=== PATIENT | male | born 1980 | race Caucasian/White ===

== ENCOUNTER 2017-11-25 19:23 | Inpatient (IN) | payer OTHER ==
[~2017-11-25 19:23] MED LIST: ISOVUE-370 76%-LOCM 1 ML ONE; Iopamidol 370 76% 50 ML VIAL FS ONE
[2017-11-25] MEDS ORDERED: Metoclopramide HCl 10 MG/2 ML VIAL ONE (20:13)
[2017-11-25] MEDS ORDERED: Pantoprazole 40 MG VIAL ONE (20:13)
[2017-11-25 20:33] LABS: #Eosinphils 0.2 thou/uL (0.0-0.7); #Lymphocytes 1.5 thou/uL (1.20-3.40); #Monocytes 1.1 thou/uL (0.11-0.59); %Basophils 0.3 % (0.0-1.0); %Eosinophils 1.7 % (0.0-10.0); %Lymphocytes 10.8 % (21.0-51.0); %Monocytes 7.9 % (0.0-10.0); %Neutrophils 79.3 % (42.0-75.0); Mean Corpuscular Volume 81.2 fL (78.0-98.0); Mean Platelet Volume 7.3 fL (7.4-10.4); Platelet Count 365 thou/uL (130-400); RBC Distribution Width 13.9 % (11.5-14.5); Red Blood Cell (RBC) Count 5.76 mill/uL (4.70-6.10); White Blood Cell (WBC) Count 13.9 thou/uL (4.8-10.8)
[2017-11-25] MEDS ORDERED: Promethazine HCl 25 MG/ML VIAL ONE (20:53)
[2017-11-25 20:54] LABS: ALT (SGPT) 23 U/L (8-55); AST (SGOT) 24 U/L (5-34); Albumin 4.5 g/dL (3.5-5.0); Alkaline Phosphatase 104 U/L (40-150); Anion Gap 11 mmol/L (10-20); BUN (Urea Nitrogen) 14 mg/dL (8.9-20.6); Bilirubin, Total 0.6 mg/dL (0.2-1.2); CK (CPK) 138 U/L (30-200); Calc. Creatinine Clearance 0 mL/min (70-130); Calcium 9.5 mg/dL (7.8-10.44); Carbon Dioxide 27 mmol/L (22-29); Chloride 106 mmol/L (98-107); Estimated GFR-MDRD 79; Globulin 3.3 g/dL (2.4-3.5); Glucose 99 mg/dL (70-105); Lipase 27 U/L (8-78); Magnesium 2.5 mg/dL (1.6-2.6); Potassium 3.9 mmol/L (3.5-5.1); Protein, Total 7.8 g/dL (6.0-8.3); Sodium 140 mmol/L (136-145)
[2017-11-25] MEDS ORDERED: Sodium Chloride 0.9% 100 ML ONE (20:54)
[2017-11-25] MEDS ORDERED: Fentanyl 100 MCG/2 ML VIAL ONE (21:32)
--- NOTE | 2017-11-26 00:10 | CT ---
ABDOMEN AND PELVIS CT WITH CONTRAST: INDICATIONS: Abdominal pain with nausea and vomiting. FINDINGS: There is mild dilatation of the small bowel, diffusely, to the level of the ileum, within the right l ower quadrant. Areas of bowel wall thickening and surrounding fat stranding, as well as slight engor gement of mesenteric vasculature are present. There is no disseminated free air or portal vein gas. There is a partially air filled, noninflamed appendix within the right lower quadrant, which measure s approximately 6 mm in diameter. There are mildly prominent lower abdominal mesenteric lymph nodes. Mild subpleural ground glass opacities at the lung bases may be related to volume loss. There is c ontrast opacification of the imaged distal esophagus, which may relate to dysmotility or reflux. The re is also prominent distention of the gastric lumen, by contrast, which may relate to stagnation fro m the above described small bowel process. There is a small hiatal hernia visualized. IMPRESSION: Findings indicative of small bowel obstruction, as well as mural edema of the small bowel, with the p oint of transition within the right lower quadrant, favoring an area of stricturing, although given t he swirled appearance of the mesentery within this region, the possibility of an internal hernia is n ot excluded. There is mild venous congestion of the mesentery with associated mild free fluid. Give n the patient's age and abnormal associated bowel findings, correlate for history of irritable bowel disease, such as Crohn's disease. Findings called to ER physician, Santana Howard M.D., at the time of the dictation (2250 hours) on 11/25/2017. CODE CR POS: [facility]
[2017-11-26] MEDS ORDERED: Midazolam HCl 2 mg/2 ml Vial ONE (00:20)
[2017-11-26] MEDS ORDERED: Lidocaine 2% Jelly 5 ML TUBE ONE (00:39)
[2017-11-26] MEDS ORDERED: Oxymetazoline HCl 0.05% ( 15 ML ) ONE (00:48)
[2017-11-26] MEDS ORDERED: Fentanyl 100 MCG/2 ML VIAL ONE (00:55)
[2017-11-26] MEDS ORDERED: Ondansetron HCl/PF 4 MG/2 ML Vial IVP PRN (02:32)
[2017-11-26] MEDS ORDERED: Fentanyl 100 MCG/2 ML VIAL SLOW IVP PRN (02:32)
[2017-11-26] MEDS ORDERED: Ondansetron ODT 4 MG TAB SL PRN (02:32)
[2017-11-26] MEDS ORDERED: Dextrose 5 %-0.45 % NaCl 1,000 ML IV SCH (02:45)
[2017-11-26 02:55] VITALS: BMI 27.5
[2017-11-26 05:35] LABS: #Eosinphils 0.2 thou/uL (0.0-0.7); #Lymphocytes 1.4 thou/uL (1.20-3.40); #Neutrophils 7.9 thou/uL (1.40-6.50); %Basophils 0.1 % (0.0-1.0); %Eosinophils 1.6 % (0.0-10.0); %Lymphocytes 13.7 % (21.0-51.0); %Monocytes 9.1 % (0.0-10.0); %Neutrophils 75.6 % (42.0-75.0); Hemoglobin 13.6 g/dL (14.0-18.0); Mean Corpuscular HGB CONC 32.4 g/dL (32.0-36.0); Mean Corpuscular Hemoglobin 26.1 pg (27.0-31.0); Mean Corpuscular Volume 80.6 fL (78.0-98.0); Mean Platelet Volume 7.4 fL (7.4-10.4); Platelet Count 307 thou/uL (130-400); RBC Distribution Width 13.7 % (11.5-14.5); White Blood Cell (WBC) Count 10.5 thou/uL (4.8-10.8)
[2017-11-26 05:49] LABS: ALT (SGPT) 20 U/L (8-55); AST (SGOT) 18 U/L (5-34); Albumin 4.1 g/dL (3.5-5.0); Alkaline Phosphatase 90 U/L (40-150); Anion Gap 10 mmol/L (10-20); BUN (Urea Nitrogen) 12 mg/dL (8.9-20.6); Bilirubin, Total 0.5 mg/dL (0.2-1.2); Calc. Creatinine Clearance 127 mL/min (70-130); Calcium 9.2 mg/dL (7.8-10.44); Carbon Dioxide 27 mmol/L (22-29); Chloride 106 mmol/L (98-107); Estimated GFR-MDRD 85; Globulin 2.8 g/dL (2.4-3.5); Glucose 116 mg/dL (70-105); Potassium 3.6 mmol/L (3.5-5.1); Protein, Total 6.9 g/dL (6.0-8.3); Sodium 139 mmol/L (136-145)
--- NOTE | 2017-11-26 08:23 | RAD ---
RADIOGRAPH CHEST 1 VIEW RADIOGRAPH ABDOMEN 2 VIEWS: Date: 11-26-17 Time: 7:36 a.m. HISTORY: 37-year-old male with inflammatory bowel disease and small bowel obstruction. Diffuse abdominal pain, nausea, and vomiting. FINDINGS: There is mild subsegmental atelectasis at the right lung base. Otherwise, the visualized lung lange are clear. The cardiomediastinal silhouette is normal. No evidence of pneumoperitoneum or pneumothora x. Lateral costophrenic angles are sharp. Air fluid levels throughout nondilated colon containing shaji nt enteric contrast material from last night's CT. Multiple dilated small bowel loops with airfluid l evels and enteric contrast material. The contrast material has reached the rectum. IMPRESSION: Abnormal bowel gas pattern. Based on the appearance of the CT, and the progression of enteric contras t media into the colon, this is probably a low grade partial small bowel obstruction. RIAN POS: [facility]
[2017-11-26] MEDS ORDERED: hydrALAZINE 20 MG/ML VIAL SLOW IVP PRN (09:19)
[2017-11-26] MEDS ORDERED: Morphine 4 MG/ML Carpuject IVP PRN (09:19)
[2017-11-26] MEDS ORDERED: Ondansetron ODT 4 MG TAB PO PRN (09:19)
[2017-11-26] MEDS ORDERED: Acetaminophen 1,000 MG in Premix Bag 1 BAG IVPB PRN (09:22)
[2017-11-26] MEDS ORDERED: Ketorolac Tromethamine 30 MG/ML VIAL IVP SCH (09:30)
[2017-11-26] MEDS ORDERED: Acetaminophen 1,000 MG in Premix Bag 1 BAG IVPB SCH (09:30)
[2017-11-26] MEDS: Lactated Ringer's 1,000 ML IV SCH ×2 (09:49→17:56)
--- NOTE | 2017-11-26 09:51 | HP ---
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, upper and lower endoscopy they were unremarkable. In the 3 days, he has experienced abdominal pain, right lower quadrant, nausea, cramps. He presented to the emergency room last night, had a white count of 13,000, normal electrolytes, normal liver functio n tests. CAT scan revealed inflammatory changes in the terminal ileal area with a normal appearing a ppendix. He had changes suggestive of partial bowel obstruction. This morning, abdominal x-rays rev eal contrast in the colon indicating an incomplete bowel obstruction. He did have some air fluid lev els in the colon. The patient is having pain. He states he has been having some loose stools since this admission. ALLERGIES: None. TOBACCO: None. ALCOHOL: Every other day 12-16 ounces of liquor. ALLERGIES: None. TOBACCO: None. MEDICATIONS: Marisela, Ambien, pravastatin 20 mg p.m., tizanidine 4 mg b.i.d., celecoxib 200 mg b.i.d ., omeprazole 20 mg a day, gabapentin 600 mg t.i.d., and cetirizine 10 mg daily. PAST SURGICAL HISTORY: Right shoulder arthroscopy, colonoscopy in the past. PAST MEDICAL HISTORY: GERD, elevated cholesterol. FAMILY HISTORY: Noncontributory. REVIEW OF SYSTEMS: Otherwise, noncontributory. PHYSICAL EXAMINATION: VITAL SIGNS: Height 5 feet 10 inches, 192 pounds, 27 BMI, 98.6, 76, and 145/81. HEENT: Unremarkable. LUNGS: Clear to auscultation. CARDIAC: Regular rate and rhythm without murmur or gallop. ABDOMEN: Soft, nondistended, non-tympanitic. Mild tenderness in right lower quadrant without guardi ng or rebound. EXTREMITIES: Unremarkable. No ankle edema, palpable pedal pulses. LYMPH: No lymphadenopathy, axilla, groins, neck. SKIN: Turgor normal. NEUROLOGIC: Intact. No deficits. LABORATORY DATA: White count 10, hemoglobin 13. Basic metabolic profile normal. Liver function kendra ts normal. ASSESSMENT AND PLAN: 1. Abdominal pain, uncertain etiology 2. Abnormal findings in the right lower quadrant near the terminal ileum, normal upper and lower end oscopy more than [address] Rohan Nazario will see him from a Gastroenterology standpoint and I have spoken with Dr. Nazario. Plan probably would be to give him a slow bowel prep and plan upper and l ower endoscopies. Laparoscopy is a possibility if indicated, but we will await endoscopic trial and results. In the meantime, hydration, analgesics.
--- NOTE | 2017-11-26 13:40 | CON ---
DATE OF CONSULTATION: 11/26/2017 HISTORY OF PRESENT ILLNESS: The patient is a 37-year-old male who was in his normal state of health until 4 days prior to admission when he developed severe abdominal cramping and pressure-li ke discomfort. This mainly came from the right side of his abdomen. He did have some nausea and vom iting starting on Saturday. He has not thrown up since Saturday. He denies any weight loss. He denies any bowel changes. He denies any fever or chills. [facility] end[facility], which showed reflux esophagitis. Colonoscopy showed possible stricture in the ileum. The rectosigmoid was spastic and could not be well inflated. Histopatholog y showed no abnormalities. Dr. Trinh also performed a small bowel follow through on 05/26/2008. Thi s showed abnormal appearance of the terminal ileum and fistulous communication within the pelvis betw een the small bowel and sigmoid colon findings suggestive of Crohn's disease. The patient was lost t o followup. PAST MEDICAL HISTORY: Includes hypertension, gastroesophageal reflux, hyperlipidemia. PAST SURGICAL HISTORY: Includes right shoulder arthroscopy. MEDICATIONS: Include Marisela 180 mg p.o. daily, Ambien 10 mg p.o. at bedtime, pravastatin 20 mg p.o. q.p.m., tizanidine 4 mg p.o. b.i.d., Zyrtec 1 p.o. daily, Celebrex 200 mg b.i.d., omeprazole 20 mg p .o. daily, gabapentin 600 mg p.o. t.i.d. ALLERGIES: No known allergies. SOCIAL HISTORY: He does not smoke, but vapes. Alcohol, drinks 1 drink per day. FAMILY HISTORY: Negative for GI or liver disease. REVIEW OF SYSTEMS: Ten systems were reviewed and were negative except for above. PHYSICAL EXAMINATION: GENERAL: Shows a well-developed, well-nourished, white male in no acute distress. VITAL SIGNS: Temperature 98.3, pulse 62, respiratory rate 18, blood pressure 132/90. HEENT: Unremarkable. NECK: Supple. CHEST: Clear. CARDIOVASCULAR: Regular rate and rhythm. ABDOMEN: Soft, slightly protuberant, slightly tympanitic, tender diffusely. Bowel sounds are presen t. RECTAL: Deferred. EXTREMITIES: Normal. NEUROLOGIC: Nonfocal. LABORATORY DATA AND IMAGING: Shows a white blood cell count of 10.5, hemoglobin 13.6, hematocrit of 42.0. Chemistries are normal. Abdominal and pelvic CT shows findings indicative of small-bowel obst ruction as well as mural edema of the small bowel with a point of transition within the right lower q uadrant area of stricturing. There is mild venous congestion of the mesentery with associated mild free fluid. ASSESSMENT: 1. Crohn's ileitis with stricture. 2. History of abnormal small bowel series in 2008 with possible enterocolonic fistula. RECOMMENDATIONS: 1. Begin IV steroids. 2. CT enterography. 3. Begin clear liquids.
[2017-11-26] MEDS: Ondansetron HCl/PF 4 MG/2 ML Vial IVP PRN (15:28)
[2017-11-26] MEDS: Ketorolac Tromethamine 30 MG/ML VIAL IVP PRN ×2 (15:28→21:32)
[2017-11-27] MEDS: Lactated Ringer's 1,000 ML IV SCH ×3 (04:01→21:51)
[2017-11-27 04:38] LABS: #Monocytes 0.3 thou/uL (0.11-0.59); #Neutrophils 7.9 thou/uL (1.40-6.50); %Eosinophils 0.1 % (0.0-10.0); %Lymphocytes 10.3 % (21.0-51.0); %Monocytes 3.7 % (0.0-10.0); %Neutrophils 85.9 % (42.0-75.0); Hemoglobin 12.6 g/dL (14.0-18.0); Mean Corpuscular HGB CONC 31.6 g/dL (32.0-36.0); Mean Corpuscular Hemoglobin 25.7 pg (27.0-31.0); Mean Corpuscular Volume 81.2 fL (78.0-98.0); Mean Platelet Volume 7.2 fL (7.4-10.4); Platelet Count 312 thou/uL (130-400); RBC Distribution Width 13.6 % (11.5-14.5); Red Blood Cell (RBC) Count 4.93 mill/uL (4.70-6.10); White Blood Cell (WBC) Count 9.2 thou/uL (4.8-10.8)
[2017-11-27] MEDS: Pantoprazole 40 MG VIAL IVP SCH (08:11)
[2017-11-27] MEDS: Enoxaparin Sodium 40 MG/0.4 ML SYRINGE SC SCH (08:11)
--- NOTE | 2017-11-27 11:55 | PRG ---
DATE OF SERVICE: 11/27/2017 Jared Marc is doing well today. Radiological findings are consistent with Crohn's disease. Appar ently when he had his endoscopy 10 years ago. He was told he had Crohn's disease. [facility] not followup. Conversation with the patient's states that he did not kn ow he had Crohn's disease. The patient has been treated with steroids. He was on liquids. He did e xperience 1 emesis after broth. He has passed a liquid stool. OBJECTIVE: VITAL SIGNS: 98.4 degrees, 91, 96% room air, 128/83. LABORATORY: White count 9, hemoglobin 12. Electrolytes not obtained today. Yesterday they were nor mal. Abdominal pelvis CAT scan oral contrast enterorrhaphy obtained today, results are pending. GI has se en him. Dr. Nazario has seen him. LUNGS: Clear to auscultation. CARDIAC: Regular rate and rhythm without murmur or gallop. ABDOMEN: Soft. Mild tenderness in the right lower quadrant. No guarding, rebound. EXTREMITIES: Unremarkable. ASSESSMENT AND PLAN: Crohn's disease with ileal stricture and inflammation. Treat nonoperatively tr ial. Diet advancement and medical treatment per Gastroenterology.
--- NOTE | 2017-11-27 13:07 | CT ---
CT OF THE ABDOMEN AND PELVIS WITH AND WITHOUT IV CONTRAST UTILIZING ENTEROGRAPHY PROTOCOL: Indication: Nausea, vomiting, abdominal pain. Comparison: CT abdomen/pelvis 11-25-17. Small bowel follow through, 05-26-08. FINDINGS: There are dilated loops of jejunum and ileum seen within the midabdomen. The dilated loops transition to a persistent region of stricturing of the distal ileum on Image 174 of axial series. There are te thered loops of terminal ileum, all to a single point, to the terminal ileum on Image 176 of Series 3 . There is entero colonic fistula extending from the terminal ileum to the sigmoid colon which was se en on the comparison small bowel follow through dated 05-26-08. Gas is seen at the fistulous communicat ion on Image 176 of Series 3. The rectum and colon appear within normal limits. There is a small amou nt free fluid seen within the pelvis and abdomen. No free air is grossly evident. There is wall thickening and slight mucosal enhancement involving portions of the terminal ileum like ly indicative of some active disease. There is bibasilar atelectasis. There is fluid distention of the stomach and distal esophagus. There is a layer of density within the gallbladder which could reflect vicarious excretion of contrast versus sludge. The pancreas and adrenal glands are normal appearing. The kidneys are normal appearing. No enlarged lymph nodes are grossly evident. There are fat containing bilateral inguinal hernias. There is scattered degenerative and osteoarthrit ic change. IMPRESSION: 1. Numerous tether loops of distal ileum to the terminal ileum causing severe stricturing of the dist al ileum and moderate grade partial small bowel obstruction. There is a persistent fistula to the sig moid colon from the terminal ileum, best seen on Image 176 of Series 3. 2. Mild free fluid within the abdomen and pelvis. 3. Layer of density within the gallbladder may reflect vicarious excretion of contrast from prior IV contrast administration or layering gallbladder sludge. POS: [facility]
[2017-11-27] MEDS: Ondansetron HCl/PF 4 MG/2 ML Vial IVP PRN (13:31)
[2017-11-27] MEDS ORDERED: Promethazine HCl 25 MG/ML VIAL IM PRN (14:39)
[2017-11-27] MEDS ORDERED: Promethazine HCl 12.5 MG SUPP PR PRN (14:39)
[2017-11-27] MEDS: Ketorolac Tromethamine 30 MG/ML VIAL IVP PRN (19:01)
--- NOTE | 2017-11-27 19:46 | PRG ---
DATE OF SERVICE: 11/27/2017 SUBJECTIVE: Mr. Macr had the CT enterography today. About 4 hours after drinking the contrast, he vomited a large amount of clear fluid and contrast. He has no abdominal pain. He is passing some l iquidy stool still today. OBJECTIVE: VITAL SIGNS: Temperature 98.3, pulse 91, blood pressure 144/88. GENERAL: He is in no acute distress. He is alert and oriented x3. HEENT: Eyes have no scleral icterus. Oropharynx is clear, without lesions. NECK: No cervical or supraclavicular lymphadenopathy. LUNGS: Clear to auscultation bilaterally. HEART: Regular rate and rhythm without murmur. ABDOMEN: Soft. He has mild tenderness in the periumbilical region and bowel sounds are present. EXTREMITIES: No lower extremity edema. LABORATORY DATA: White blood cell count 9.2, hemoglobin 12.6, platelets 312, creatinine 1.0, bilirub in 0.5, AST 18, ALT 20, alkaline phosphatase 90, albumin 4.1. IMAGING: He had CT scan of the abdomen and pelvis with CT enterography protocol. There was wall thi ckening and mucosal enhancement involving portions of the terminal ileum suggestive of some active in flammation. There were dilated loops of jejunum and ileum noted. There is a persistent region of st ricturing in the distal ileum with tethered loops of terminal ileum all to a single point. An entero colonic fistula was identified between the sigmoid colon and small bowel. IMPRESSION: Crohn's disease of the distal ileum with fibrostenotic stricturing versus inflammatory s tricturing plus penetrating disease with a enterocolonic fistula from the terminal ileum to the sigmo id. Given that he has had this stricture and fistula for 10 years, this is likely fibrostenotic rath er than just acute inflammatory disease. The fistula is actually allowing him to decompress some of the terminal ileum obstruction. I think ultimately the best treatment for this would likely end up b eing surgery to resect the diseased segment; however, given that there are multiple loops of bowel re ported as tethered to the area, there is a concern that he might require more extensive bowel resecti on. It is possible that he has a significant inflammatory component in which case medical therapy sh ould at least be given a chance. RECOMMENDATIONS: 1. Continue to treat with IV steroids. If he ultimately fails to significantly improve over the nex t few days with steroids, then I would lean towards proceeding directly to surgery. If he does impro ve and is able to tolerate adequate nutrition with the steroids and I would transition to an anti-TNF such as Remicade as an outpatient and then follow longer term on how he responds to this. 2. In anticipation for potential need for anti-TNF, we will check viral hepatitis panel and TB Quant iFERON and HIV. We will keep him n.p.o. for now since he vomited today the contrast and had a disten ded stomach and small bowel. He is not tolerated attempted placement of NG tube.
[2017-11-27] MEDS ORDERED: Morphine 2 MG/ML SYRINGE IVP PRN (22:00)
[2017-11-28 05:38] LABS: #Neutrophils 7.5 thou/uL (1.40-6.50); %Basophils 0.1 % (0.0-1.0); %Eosinophils 0.1 % (0.0-10.0); %Lymphocytes 10.2 % (21.0-51.0); %Monocytes 10.1 % (0.0-10.0); %Neutrophils 79.5 % (42.0-75.0); Hemoglobin 11.9 g/dL (14.0-18.0); Mean Corpuscular HGB CONC 32.7 g/dL (32.0-36.0); Mean Corpuscular Hemoglobin 26.7 pg (27.0-31.0); Mean Corpuscular Volume 81.7 fL (78.0-98.0); Mean Platelet Volume 7.8 fL (7.4-10.4); Platelet Count 290 thou/uL (130-400); RBC Distribution Width 13.8 % (11.5-14.5); Red Blood Cell (RBC) Count 4.47 mill/uL (4.70-6.10); White Blood Cell (WBC) Count 9.4 thou/uL (4.8-10.8)
[2017-11-28 05:47] LABS: Anion Gap 10 mmol/L (10-20); BUN (Urea Nitrogen) 19 mg/dL (8.9-20.6); Calc. Creatinine Clearance 149 mL/min (70-130); Calcium 9.4 mg/dL (7.8-10.44); Carbon Dioxide 27 mmol/L (22-29); Chloride 107 mmol/L (98-107); Estimated GFR-MDRD Greater than 90; Glucose 109 mg/dL (70-105); Potassium 4.1 mmol/L (3.5-5.1); Sodium 140 mmol/L (136-145)
[2017-11-28] MEDS: Lactated Ringer's 1,000 ML IV SCH ×4 (06:00→21:32)
[2017-11-28 06:03] LABS: HBSAB Concentration 2.55 mIU/mL; HBSAg Index 0.26 S/CO (0-0.99); Hep B Core Total Ab Non-Reactive (NonReactive); Hep B Core Total Index 0.14 S/CO (0-0.79); Hep B Surf AB Non-Reactive (NonReactive); Hep B Surf Ag Non-Reactive S/CO (NonReactive); Hep C IgG Ab Non-Reactive (NonReactive)
[2017-11-28] MEDS: Pantoprazole 40 MG VIAL IVP SCH (09:13)
[2017-11-28] MEDS: Enoxaparin Sodium 40 MG/0.4 ML SYRINGE SC SCH (09:13)
--- NOTE | 2017-11-28 11:14 | PRG ---
DATE OF SERVICE: 11/28/2017 SUBJECTIVE: Mr. Marc is doing well. Yesterday, he had crampy abdominal pain and nausea after CAT scan, he had similar episode when he did an initial CAT scan on presentation, he is feeling better an d ready to try liquids again. He is having loose stools. his CAT scan demonstrated active Apartment Property Manager hn's disease with terminal ileal stricture and ileal colonic fistula as seen on CAT scan 9 to 10 year s ago. I have discussed with Dr. Michael Trinh, his hired worker and we will make an effort to treat this nonsurgically, although he is at high risk for needing surgical intervention in the futur e. I have discussed with the patient that possibility and explained to him that if we did embark on surgical intervention, then we would preserve as much bowel as possible, but he would likely need a s egmental small bowel resection, the extent of which is what had to be determined in the operating florenec m and most likely would need a segmental colon resection. At this point, we will try to treat this n onoperatively. OBJECTIVE: LUNGS: Clear to auscultation. CARDIAC: Regular rate and rhythm without murmur or gallop. ABDOMEN: Soft, nontympanitic, nondistended, nontender. He is not having any pain. VITAL SIGNS: 98.5 degrees, 70, 132/92. 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 He does not have any pain or tenderness at this time. Dr. Trinh is initiating medical management. We will start clear liquids, advance to full liquids as tolerated and saline lock him i f he is tolerating his liquids today. He is likely to be able to be discharged in the next 24-48 juan manule rs per gastroenterology's assessment. Care at this point is mainly up to Gastroenterology. Follow u p will be with Gastroenterology and me as needed. I have told the patient if he has exacerbations in the future, he could call my office or to Dr. Trinh's office and that I could directly admit him to the hospital to avoid emergency room visits see him in the office during office hours.
--- NOTE | 2017-11-28 22:16 | PRG ---
DATE OF CONSULTATION: 11/28/2017 SUBJECTIVE: Mr. Marc feels great today. He has no abdominal discomfort or distention. He has had some watery stools at baseline. He has had no blood in the stool, no nausea or vomiting. OBJECTIVE: VITAL SIGNS: Temperature 98.6, pulse 68, blood pressure 153/91. GENERAL: He is in no acute distress. He is alert and oriented x3. HEENT: Eyes have no scleral icterus. Oropharynx is clear, without lesions. NECK: No cervical or supraclavicular lymphadenopathy. LUNGS: Clear to auscultation bilaterally. HEART: Regular rate and rhythm. ABDOMEN: Soft, nontender, nondistended. Bowel sounds are present. EXTREMITIES: No lower extremity edema. LABORATORY DATA: White blood cell count 9.4, hemoglobin 11.9, platelets 290, creatinine 0.85. Viral hepatitis panel is negative. IMPRESSION: Crohn's ileitis with fistula from the terminal ileum to the sigmoid colon by imaging. Luly parada most likely has severe fibrostenotic disease of the ileum which has been bypassed over the years th rough the ileo colonic fistula. RECOMMENDATIONS: 1. We will transition to prednisone 40 mg tomorrow and then plan a 35-day taper. 2. In the meantime, we will initiate approval process for infliximab. 3. I suspect he has severe fibrostenotic disease of the ileum that may not respond to medical therap y. This has been circumvented over the last few years with the fistula. An anti-TNF hypothetically could actually reduce flow through the fistula which then could result in more obstructive process fr om the ileal disease. I would suspect that he will ultimately require surgical resection, but we rin l give a chance for medical therapy. Since severe ileal stenosis has been present for 10 or more yea rs, again this is less likely inflammatory more likely fibrostenotic. Also, he does not have chronic pain or discomfort related to this which again points away from this being inflammatory and more lik mahnaz fibrostenotic. 4. We will start a low residue diet in the morning. If he tolerates this well throughout the day, t hen tomorrow evening, he could potentially discharge home.
[2017-11-29] MEDS: Lactated Ringer's 1,000 ML IV SCH ×2 (03:43→13:40)
[2017-11-29 05:42] LABS: #Lymphocytes 0.9 thou/uL (1.20-3.40); #Monocytes 0.6 thou/uL (0.11-0.59); #Neutrophils 4.8 thou/uL (1.40-6.50); %Basophils 0.2 % (0.0-1.0); %Eosinophils 0.4 % (0.0-10.0); %Lymphocytes 14.4 % (21.0-51.0); Hemoglobin 11.7 g/dL (14.0-18.0); Mean Corpuscular Hemoglobin 26.1 pg (27.0-31.0); Mean Corpuscular Volume 81.7 fL (78.0-98.0); Mean Platelet Volume 7.8 fL (7.4-10.4); Platelet Count 275 thou/uL (130-400); RBC Distribution Width 13.8 % (11.5-14.5); Red Blood Cell (RBC) Count 4.47 mill/uL (4.70-6.10); White Blood Cell (WBC) Count 6.3 thou/uL (4.8-10.8)
[2017-11-29 05:48] LABS: ALT (SGPT) 181 U/L (8-55); AST (SGOT) 121 U/L (5-34); Albumin 3.9 g/dL (3.5-5.0); Alkaline Phosphatase 89 U/L (40-150); Anion Gap 11 mmol/L (10-20); BUN (Urea Nitrogen) 15 mg/dL (8.9-20.6); Bilirubin, Total 0.5 mg/dL (0.2-1.2); Calc. Creatinine Clearance 153 mL/min (70-130); Carbon Dioxide 27 mmol/L (22-29); Chloride 106 mmol/L (98-107); Estimated GFR-MDRD Greater than 90; Globulin 2.4 g/dL (2.4-3.5); Glucose 105 mg/dL (70-105); Potassium 4.1 mmol/L (3.5-5.1); Protein, Total 6.3 g/dL (6.0-8.3); Sodium 140 mmol/L (136-145)
[2017-11-29 06:04] LABS: HIV (1/2) Antibody/Antigen Non-Reactive (NonReactive); HIV 1/2 INDEX 0.11 S/CO (<1.00)
[2017-11-29] MEDS: Enoxaparin Sodium 40 MG/0.4 ML SYRINGE SC SCH (08:34)
[2017-11-29] MEDS: Pantoprazole 40 MG VIAL IVP SCH (08:36)
--- NOTE | 2017-11-29 10:01 | PRG ---
DATE OF SERVICE: 11/29/2017 Jared Marc is doing well today. OBJECTIVE: VITAL SIGNS: Temperature 97.7, 72, 115/73. LABORATORY: White count 6, hemoglobin 11.7. Comprehensive metabolic profile was normal. LUNGS: Clear to auscultation. CARDIAC: Regular rate and rhythm without murmur or gallop. ABDOMEN: Soft, nontender, no masses. 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 Dr. Trinh has seen him and steroids administered. He has tolerated his low fiber break fast this morning. Dr. Trinh is getting insurance approval to start approval for infliximab. I susp ect the patient will be discharged home later today after Dr. Trinh's visit. Dr. Trinh will follow h im as an outpatient. I will see him as needed in the future if decision was made for surgical interv ention for which there is a good likelihood. I have discussed that with him and answered his questio ns. Today we will await Dr. Michael Trinh's visit, he can be discharged home after Dr. Trinh's visit and discharge instructions.
[2017-11-29] MEDS ORDERED: predniSONE 20 MG TAB PO SCH ×2 (10:15)
[2017-11-29 11:42] VITALS: BP 133/88; TEMP 98.4
--- NOTE | 2017-11-29 12:44 | DIS ---
DATE OF ADMISSION: 11/25/2017 DATE OF DISCHARGE: 11/29/2017 DISCHARGE DIAGNOSES: Crohn's disease with terminal ileitis; exacerbation of his Crohn's with intesti nal colonic sigmoid fistula, chronic, present for more than 9 years. DISCHARGE MEDICATIONS: Oral steroids per Dr. Michael Trinh. PROCEDURES THIS HOSPITALIZATION: 11/25/2017, CAT scan of the abdomen and pelvis. 11/27/2017, CAT sc an of abdomen and pelvis, enterorrhaphy, noting the above findings with intestinal colonic fistula pr esent for more than 9 years. HISTORY: This is a 37-year-old male, who presents with exacerbation of his Crohn's. He did not know that he has Crohn's prior to this. He saw Dr. Michael Trinh 9 or 10 years ago from intestinal compl aints, abdominal complaints, and workup was undertaken. The patient states that he was told he thoug ht he might have Crohn's, but he did not. He grew tired of the workup and has done well to date unti l he developed pain. He has had chronic multiple loose stools a day consistent with past diagnosis o f intestinal colonic fistula, sigmoid, documented by CAT scan 9 or 10 years ago. Patient is admitted this hospitalization. NG tube attempted not successful. He did have some nausea, vomiting, abdomin al cramps. Dr. Trinh saw him in consultation and started him on high-dose parenteral steroids. He i mproved rapidly, underwent CT enterorrhaphy with the above results. A decision was made to treat him medically. There is a good chance of they will need surgical intervention in the future. He will f ollow up with Dr. Trinh and stay on a soft, low-fiber diet. He will see me p.r.n. There is a good c tari he will need laparotomy, TAP blocks versus epidural, ileal resection, possibly ileocecectomy an d possible segmental sigmoid resection, but we will give medical trial a chance. He is working on in surance approval and facts submitted per Dr. Trinh. He will follow up with Dr. Trinh see me as erika leonard
--- NOTE | 2017-11-29 13:56 | PRG ---
DATE OF SERVICE: 11/29/2017 SUBJECTIVE: Mr. Marc is tolerating a solid diet well. He did have a couple episodes of diarrhea, but this is not far from his baseline. He has absolutely no abdominal pain. OBJECTIVE: VITAL SIGNS: Temperature 98.4, pulse 91, blood pressure 133/88. GENERAL: He is in no acute distress, alert and oriented x3. LUNGS: Clear to auscultation bilaterally. HEART: Regular rate and rhythm without murmur. ABDOMEN: Soft, nontender, nondistended. Bowel sounds are present. EXTREMITIES: No lower extremity edema. LABORATORY DATA: Creatinine is 0.83, bilirubin 0.5, AST 121, ALT 181, alkaline phosphatase 89, album in 3.9, viral hepatitis screen was nonreactive. His surface antibody for hepatitis B was nonreactiv e. IMPRESSION: 1. 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 He presented with partial small-bowel obstruction which is now resolved . 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 We will see how he responds to steroids as at least at this point his symptoms have resolv ed with the steroids. He will need to follow up in the office and wait for additional labs before st arting anti-TNF. Viral hepatitis screen is negative. We are awaiting a QuantiFERON for TB. 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 2. Abnormal liver tests. His transaminases are elevated today, up from normal levels 3 days ago. I suspect this is due to the steroid. We have transitioned from IV Solu-Medrol to prednisone today. RECOMMENDATIONS: 1. Follow up in the office next week to repeat liver test. 2. Schedule outpatient EGD and colonoscopy. He has a history of abnormal celiac serology and appare nt small bowel Crohn's and upper endoscopy will be indicated as well as lower endoscopy. This is in anticipation of starting an anti-TNF. 3. Initiate approval process for anti-TNF likely Remicade. 4. He might ultimately require surgery for fibrostenotic disease if he does not respond adequately t o medical therapy. 5. He should be vaccinated for hepatitis A and hepatitis B given the need for immune suppression and also work as a aircraft motor mechanic. If he was vaccinated previously then he did not get an adequate response based on his current hepatitis B antibody. 6. Steroid taper now with prednisone 40 mg for a week, 30 mg for a week, 20 mg for a week, 10 mg for a week, 5 mg for a week and then discontinue.
[2017-11-30] MEDS ORDERED: predniSONE 20 MG TAB PO SCH (08:00)
== END 2017-11-29 14:45 | disposition home or self-care (01) | DRG 387 ==
LOC: ERS 19:23 → SURG A 11-26 00:27
PROVIDERS: ADMIT Specialist; ATTEND Specialist
DX: K50.013 Crohn's disease of small intestine with fistula (principal); K21.9 Gastro-esophageal reflux disease without esophagitis; E78.00 Pure hypercholesterolemia, unspecified; K52.89 Other specified noninfective gastroenteritis and colitis; I10 Essential (primary) hypertension; E78.5 Hyperlipidemia, unspecified
CPT/HCPCS: 36415; 74022; 74177; 74178; 80048; 80053; 82550; 83605; 83690; 83735; 85025; 86704; 86706; 86708; 86803; 87340; 87389; 96365; 96366; 96367; 96368; 96375; 96376; C9113; J0131; J1650; J1885; J2250; J2270; J2405; J2550; J2765; J2920; J3010; J7050; J7506

== ENCOUNTER 2017-12-27 13:10 | Outpatient (CLI) | payer OTHER ==
--- NOTE | 2017-12-27 17:25 | MRI ---
MRI ABDOMEN WITH AND WITHOUT IV CONTRAST: (MR enterography) History Crohn's disease of the small bowel. FINDINGS: The liver, spleen, pancreas, adrenal glands, kidneys, and gallbladder appear normal. No free fluid o r lymphadenopathy is seen in the abdomen or pelvis. The bone marrow signal is normal. The small bowel loops are not abnormally dilated. There is threading of the loops of the distal ileu m with thickening and enhancement to the wall of the terminal ileum. There is fistulous communicatio n between the terminal ileum and the sigmoid colon. No abnormally loculated fluid collection is seen to suggest abscess formation. There is a small fat-containing umbilical hernia. The bone marrow si gnal is normal. IMPRESSION: 1. Stricture of the terminal ileum with active disease. 2. 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 POS: MARTHA
== END 2017-12-27 13:11 | disposition home or self-care (01) ==
LOC: MRI 13:10
PROVIDERS: ATTEND Internal Medicine Gastroenterology
DX: K50.00 Crohn's disease of small intestine without complications (principal); K50.013 Crohn's disease of small intestine with fistula
CPT/HCPCS: 74183; J1610

== ENCOUNTER 2020-05-06 08:34 | Day surgery (SDC) | payer BC ==
[~2020-05-06 08:34] MED LIST changes: -ISOVUE-370 76%-LOCM 1 ML ONE; -Iopamidol 370 76% 50 ML VIAL FS ONE; +Ustekinumab 390 MG in Sodium Chloride 0.9% 250 ML 172 ML IV SCH
[2020-05-06] MEDS ORDERED: Acetaminophen 500 MG TAB PO PRN (08:49)
[2020-05-06] MEDS ORDERED: diphenhydrAMINE 25 MG CAP PO PRN (08:49)
[2020-05-06] MEDS: Sodium Chloride 0.9% 20 ML ONE ×2 (08:57→10:33)
[2020-05-06 18:18] VITALS: BP 114/65; TEMP 97.9
== END 2020-05-06 18:19 | disposition home or self-care (01) ==
LOC: ONC/OP 08:34
PROVIDERS: ATTEND Internal Medicine Gastroenterology
DX: K50.013 Crohn's disease of small intestine with fistula (principal)
CPT/HCPCS: 96413; J3358; J7050; Q0163

== ENCOUNTER 2021-07-20 12:19 | Outpatient (CLI) | payer BC | END 2021-07-20 12:20 | disposition home or self-care (01) | LOC: BICRAD 12:19 | PROVIDERS: ATTEND Nurse Practitioner Family | DX: R05.3 Chronic cough (principal) | CPT/HCPCS: 71046 ==

== ENCOUNTER 2022-02-14 09:41 | Outpatient (CLI) | payer BC | END 2022-02-14 09:42 | disposition home or self-care (01) | LOC: TBSIIMAG 09:41 | PROVIDERS: ATTEND Family Medicine | DX: M47.26 Other spondylosis with radiculopathy, lumbar region (principal); M54.50 Low back pain, unspecified; G89.29 Other chronic pain; M47.817 Spondylosis without myelopathy or radiculopathy, lumbosacral region | CPT/HCPCS: 72158 ==